=== PATIENT | male | born 1980 | race Caucasian/White ===

== ENCOUNTER 2017-12-14 23:07 | Emergency (ER) | payer MEDICAID ==
[~2017-12-14] VITALS: Ht 175.3 cm; Wt 106.1 kg
[2017-12-14 23:13] VITALS: BP 156/99; Ht 175.3 cm; Wt 106.1 kg
== END 2017-12-15 00:23 | disposition home or self-care (01) ==
LOC: ED 23:07
DX: K40.90 Unilateral inguinal hernia, without obstruction or gangrene, not specified as recurrent (principal)

== ENCOUNTER 2018-05-17 21:13 | Emergency (ER) | payer MEDICAID ==
[~2018-05-17] VITALS: Ht 175.3 cm; Wt 107.2 kg
[2018-05-17 21:18] VITALS: Ht 175.3 cm; Wt 107.2 kg
[2018-05-17 23:41] VITALS: BP 120/74
== END 2018-05-17 23:41 | disposition home or self-care (01) ==
LOC: ED 21:13
DX: R10.13 Epigastric pain (principal); R11.10 Vomiting, unspecified; R19.7 Diarrhea, unspecified; I10 Essential (primary) hypertension; F17.210 Nicotine dependence, cigarettes, uncomplicated; Z87.19 Personal history of other diseases of the digestive system
CPT/HCPCS: Q0162

== ENCOUNTER 2018-07-09 10:50 | Emergency (ER) | payer MEDICAID ==
[~2018-07-09] VITALS: Ht 175.3 cm; Wt 109.8 kg
[2018-07-09 10:53] VITALS: Ht 175.3 cm; Wt 109.8 kg
[2018-07-09 13:51] VITALS: BP 149/83
== END 2018-07-09 13:51 | disposition home or self-care (01) ==
LOC: ED 10:50
DX: B34.9 Viral infection, unspecified (principal); F17.210 Nicotine dependence, cigarettes, uncomplicated; I10 Essential (primary) hypertension; Z98.890 Other specified postprocedural states
CPT/HCPCS: 87804; Q0169

== ENCOUNTER 2019-03-04 19:21 | Emergency (ER) | payer MEDICAID ==
[~2019-03-04] VITALS: Ht 175.3 cm; Wt 104.3 kg
[2019-03-04 19:44] VITALS: Ht 175.3 cm; Wt 104.3 kg
[2019-03-04 21:44] VITALS: BP 122/76
== END 2019-03-04 21:44 | disposition home or self-care (01) ==
LOC: ED 19:21
DX: R11.2 Nausea with vomiting, unspecified (principal); R19.7 Diarrhea, unspecified; I10 Essential (primary) hypertension; R51 Headache; M54.9 Dorsalgia, unspecified
CPT/HCPCS: J1885; Q0162

== ENCOUNTER 2019-04-27 11:57 | Emergency (ER) | payer MEDICAID ==
[~2019-04-27] VITALS: Ht 175.3 cm; Wt 118.8 kg
[2019-04-27 12:12] VITALS: Ht 175.3 cm; Wt 118.8 kg
[2019-04-27 13:58] LABS: BASOPHIL % 0.3 % (0-2); PLATELET COUNT 220 x10^3mcL (130-400); RED CELL DISTRIBUTION WIDTH 13.5 % (11.5-14.5)
[2019-04-27 14:25] LABS: CALCIUM 8.6 mg/dL (8.5-10.1); CARBON DIOXIDE 30.9 mmol/L (21-32); CHLORIDE SERUM 104 mmol/L (98-107); CREATININE SERUM 0.8 mg/dL (0.7-1.3); GFR1 > 60 mL/min; GLUCOSE SERUM 101 mg/dL (74-106); POTASSIUM SERUM 3.9 mmol/L (3.5-5.1); SODIUM SERUM 143 mmol/L (136-145)
[2019-04-27 16:51] VITALS: BP 129/78
== END 2019-04-27 16:51 | disposition home or self-care (01) ==
LOC: ED 11:57
PROVIDERS: Emergency Medicine
DX: B34.9 Viral infection, unspecified (principal); I10 Essential (primary) hypertension
CPT/HCPCS: 36415

== ENCOUNTER 2019-07-02 17:49 | Emergency (ER) | payer MEDICAID ==
[~2019-07-02] VITALS: Ht 175.3 cm; Wt 112.9 kg
[2019-07-02 17:56] VITALS: Ht 175.3 cm; Wt 112.9 kg
[2019-07-02 19:10] LABS: BASOPHIL % 0.6 % (0-2); PLATELET COUNT 139 x10^3mcL (130-400); RED CELL DISTRIBUTION WIDTH 13.1 % (11.5-14.5)
[2019-07-02 19:27] LABS: CALCIUM 7.9 mg/dL (8.5-10.1); CARBON DIOXIDE 25.5 mmol/L (21-32); CHLORIDE SERUM 99 mmol/L (98-107); CREATININE SERUM 0.8 mg/dL (0.7-1.3); GFR1 > 60 mL/min; GLUCOSE SERUM 103 mg/dL (74-106); POTASSIUM SERUM 3.2 mmol/L (3.5-5.1); SODIUM SERUM 134 mmol/L (136-145)
[2019-07-02 19:32] LABS: ALBUMIN 3.5 g/dL (3.4-5.0); ALKALINE PHOSPHATASE 75 U/L (46-116); ALT/SGPT 32 U/L (16-63); AST/SGOT 32 U/L (15-37); CHOLESTEROL 139 mg/dL (<200); TOTAL PROTEIN, SERUM 7.7 g/dL (6.4-8.2)
[2019-07-02 19:41] LABS: HDL CHOLESTEROL 33 mg/dL (40-60)
[2019-07-02 21:51] VITALS: BP 144/80
== END 2019-07-02 21:37 | disposition home or self-care (01) ==
LOC: ED 17:49
PROVIDERS: Emergency Medicine
DX: J11.00 Influenza due to unidentified influenza virus with unspecified type of pneumonia (principal); I10 Essential (primary) hypertension; Z98.890 Other specified postprocedural states
CPT/HCPCS: 87804; J1885; J7030; Q0092